=== PATIENT | male | born 1990 | race Two or more races ===

== ENCOUNTER 2017-09-20 17:48 | Emergency (ER) | payer OTHER ==
[~2017-09-20] VITALS: Ht 200.7 cm; Wt 77.1 kg
--- NOTE | 2017-09-20 17:50 | NUR ---
AGUSTIN 89 FROM HOME FOR SYNCOPAL EPISODE POST PLASMA DONATION, [id number], PT ALSO C/O R SHOULDER, R JAW AND CHIN LAC. NAD NOTED, VSS, RESP EVEN AND UNLABORED. PT WAS PUT ON MONITOR AND HOSPITAL GOWN, WAITING FOR MD GAO.
[2017-09-20] MEDS ORDERED: ONDANSETRON HCL/PF 4 MG/2 ML VIAL ONE (18:12)
[2017-09-20] MEDS ORDERED: MORPHINE SULFATE INJ 2 MG/ML DISP.SYRIN ONE (18:12)
[2017-09-20] MEDS ORDERED: MORPHINE SULFATE INJ 4 MG/ML DISP.SYRIN ONE (18:13)
[2017-09-20 18:24] LABS: BASOPHILS % (AUTO) 0.3 % (0.0-2.0); EOSINOPHILS % (AUTO) 1.3 % (0.0-6.0); HEMATOCRIT 44 % (39-51); HEMOGLOBIN 14.4 g/dL (13.5-17.5); LYMPHOCYTES # (AUTO) 2.1 /CMM (0.8-4.8); MEAN CORPUSCULAR HEMOGLOBIN 31 PG (26.0-33.0); MEAN CORPUSCULAR HGB CONC 33 g/dl (31.0-36.0); MEAN CORPUSCULAR VOLUME 94 fL (80-96); MONOCYTES # (AUTO) 0.4 /CMM (0.1-1.30); MONOCYTES % (AUTO) 5.7 % (2.0-12.0); NEUTROPHILS # (AUTO) 4.8 /CMM (1.8-8.9); NEUTROPHILS % (AUTO) 64.7 % (43.0-81.0); PLATELET COUNT (AUTO) 208 /CMM (150-450); RDW COEFFICIENT OF VARIATION 13.9 (11.5-15.0); RED BLOOD CELL COUNT(AUTO) 4.66 MIL/uL (4.5-6.0); WHITE BLOOD COUNT (AUTO) 7.4 K/uL (4.3-11.0)
[2017-09-20] MEDS ORDERED: LIDOCAINE 1%-EPI 1:100,000 20 ML VIAL ONE (18:25)
--- NOTE | 2017-09-20 18:29 | NUR ---
PT TO [facility]SCAN
[2017-09-20] MEDS ORDERED: LIDOCAINE 1%-EPI 1:100,000 20 ML VIAL TP ONE (18:30)
[2017-09-20] MEDS ORDERED: MORPHINE SULFATE INJ 2 MG/ML DISP.SYRIN IV ONE (18:30)
[2017-09-20] MEDS ORDERED: ONDANSETRON HCL/PF 4 MG/2 ML VIAL IVP ONE (18:30)
[2017-09-20] MEDS ORDERED: IV NS 0.9% 500 ML BAG IV ONE (18:30)
[2017-09-20 18:40] LABS: CALCIUM, SERUM 8.2 mg/dL (8.5-10.1); CREATININE 1.2 mg/dL (0.6-1.3); POTASSIUM 4.1 mmol/L (3.5-5.1)
--- NOTE | 2017-09-20 19:21 | NUR ---
CALLED DR BORREGO, WAS PAGED.
--- NOTE | 2017-09-20 19:45 | NUR ---
PATIENT IS RESTING IN ER BED, NO DISTRESS NOTED, SKIN WARM AND DRY. PATIENT IS ON RANGE AIDE, WILL CONTINUE TO MONITOR
--- NOTE | 2017-09-20 19:55 | NUR ---
DR BORREGO CALLED BACK, ON THE PHONE WITH THEA WANG.
[2017-09-20] MEDS ORDERED: TDAP [DIPH/PERTUSSIS/TET] 0.5 ML VIAL IM ONE ×2 (20:00→20:16)
--- NOTE | 2017-09-20 20:05 | NUR ---
VITAL SIGNS UPDATED.
[2017-09-20 20:28] VITALS: BP 122/65
--- NOTE | 2017-09-20 20:28 | NUR ---
medicated pt as ordered
--- NOTE | 2017-09-20 20:28 | NUR ---
Patient discharged to home in stable condition. Written and verbal after care instructions given. Patient verbalizes understanding of instruction.IV removed. Catheter intact and site benign. Pressure and 4x4 applied to site. No bleeding noted. pt ambulatory with a steady gait
== END 2017-09-20 20:29 | disposition home or self-care (01) ==
LOC: ER 17:50
DX: S02.612A Fracture of condylar process of left mandible, initial encounter for closed fracture (principal); S01.81XA Laceration without foreign body of other part of head, initial encounter; R55 Syncope and collapse; M25.511 Pain in right shoulder; W22.09XA Striking against other stationary object, initial encounter; Y93.89 Activity, other specified; Y92.89 Other specified places as the place of occurrence of the external cause; Y99.8 Other external cause status
CPT/HCPCS: 12013; 36415; 70450; 70486; 71045; 73030; 80048; 85025; 90471; 90715; 93005; 96374; 96375; 99285; A4606; A6402; A6403; J2270 ×2; J2405; J3490; Z7610